=== PATIENT | male | born 1945 | race Caucasian/White ===

== ENCOUNTER 2017-08-20 14:52 | Inpatient (IN) | payer OTHER, MEDICARE ==
[2017-08-20] MEDS ORDERED: FUROSEMIDE INJ/PF 40 MG/4 ML SDV IV ONE (16:10)
--- NOTE | 2017-08-20 16:12 | RADIOLOGY REPORT (SQ) ---
EXAM DESCRIPTION: CHEST PA/LAT COMPLETED DATE/TIME: 08/20/2017 4:02 pm REASON FOR STUDY: sob COMPARISON: None. EXAM PARAMETERS: NUMBER OF VIEWS: two views TECHNIQUE: Digital Frontal and Lateral radiographic views of the chest acquired. RADIATION DOSE: NA LIMITATIONS: none FINDINGS: LUNGS AND PLEURA: Focal consolidations are seen involving the right lower lobe and lingula . No pneumothorax. No pleural effusion. MEDIASTINUM AND HILAR STRUCTURES: No masses or contour abnormalities. HEART AND VASCULAR STRUCTURES: Heart normal size. No evidence for failure. BONES: No acute findings. HARDWARE: Midline surgical changes. OTHER: No other significant finding. IMPRESSION: Multi lobar pneumonia. TECHNICAL DOCUMENTATION: JOB ID: [id number] [employer]- All Rights Reserved Reading location - IP/workstation name: [email or web address]
[2017-08-20] MEDS ORDERED: CEFTRIAXONE 1 GM/D5W RTU 1 GM/50 ML RTUPB IV ONE (16:49)
[2017-08-20] MEDS ORDERED: AZITHROMYCIN INJ 500 MG VIAL IV ONE (16:50)
--- NOTE | 2017-08-20 16:57 | ER Document Report ---
ED General - General Chief Complaint: Shortness Of Breath Stated Complaint: SHORTNESS OF BREATH Time Seen by Provider: 08/20/17 15:21 Information source: Patient, Relative TRAVEL OUTSIDE OF THE [place] IN LAST 30 DAYS: No - HPI Patient complains to provider of: sob Onset: Yesterday Onset/Duration: Gradual Quality of pain: No pain Associated symptoms: Nonproductive cough, Fever - 101 last PM-tympanic Exacerbated by: Denies Relieved by: Denies Similar symptoms previously: Yes - flu/PNA June Recently seen / treated by doctor: Yes Notes: Pt. Chronically on 4 L of O2. He recently was fitted for CPAP and is awaiting its arrival. Patient has extensive medical history of COPD, diabetes, hypertension, CABG in 2009. He had a temperature last night of 101 via his temporal skin area. No nausea vomiting or diarrhea. Patient presents here with shortness of breath. - Related Data Allergies/Adverse Reactions: dialiresp Allergy (Uncoded 08/20/17 14:54) Past Medical History - General Information source: Patient, Relative, Emergency Med Personnel - Social History Smoking Status: Never Smoker Chew tobacco use (# tins/day): No Frequency of alcohol use: None Drug Abuse: None Lives with: Family Family History: Hypertension Patient has suicidal ideation: No Patient has homicidal ideation: No - Past Medical History Cardiac Medical History: Reports: Hx Congestive Heart Failure, Hx Hypertension Pulmonary Medical History: Reports: Hx Pneumonia, Hx Intubation - December of this year EENT Medical History: Reports: None Neurological Medical History: Reports: None Endocrine Medical History: Reports: Hx Diabetes Mellitus Type 2 Renal/ Medical History: Reports: None. Denies: Hx Peritoneal Dialysis Malignancy Medical History: Reports None GI Medical History: Reports: None Psychiatric Medical History: Reports: None Past Surgical History: Reports: Hx Cardiac Surgery - CABG, Hx Orthopedic Surgery Review of Systems - Review of Systems Constitutional: Fever EENT: No symptoms reported Cardiovascular: No symptoms reported Respiratory: Cough, Short of breath Gastrointestinal: No symptoms reported Genitourinary: No symptoms reported Male Genitourinary: No symptoms reported Musculoskeletal: No symptoms reported Skin: No symptoms reported Hematologic/Lymphatic: No symptoms reported Neurological/Psychological: No symptoms reported Physical Exam - Vital signs Vitals: Temp Pulse Resp BP Pulse Ox 99.6 F 109 H 14 109/64 98 08/20/17 15:05 08/20/17 15:05 08/20/17 15:05 08/20/17 15:05 08/20/17 15:05 - Notes Notes: PHYSICAL EXAMINATION: GENERAL: Ill-appearing. Mild respiratory distress. HEAD: Atraumatic, normocephalic. EYES: Pupils equal round and reactive to light, extraocular movements intact, sclera anicteric, conjunctiva are normal. ENT: Nares patent, oropharynx clear without exudates. Moist mucous membranes. NECK: Normal range of motion, supple without lymphadenopathy LUNGS: Extensive bibasilar crackles. No wheezes or rhonchi. HEART: Regular rate and rhythm ABDOMEN: Soft, nontender, nondistended abdomen. No guarding, no rebound. No masses appreciated. Musculoskeletal: Normal range of motion, +1 pitting or edema. No cyanosis. NEUROLOGICAL: Cranial nerves grossly intact. Normal speech. Normal sensory, motor exams PSYCH: Normal mood, normal affect. SKIN: Warm, Dry, normal turgor, no rashes or lesions noted. Course - Re-evaluation Re-evalutation: 08/20/17 16:57 Patient's states patient is usually on 4 liters oxygen and his pulse ox is around 89-90. Chest X-Ray 08/20/17 15:26 IMPRESSION: Multi lobar pneumonia. 08/20/17 18:[address] Epstein. No answer. 08/20/17 18:22 08/20/17 19:29 08/20/17 19:55 - Vital Signs Vital signs: Temp Pulse Resp BP Pulse Ox 99.9 F 109 H 16 110/76 91 L 08/20/17 18:03 08/20/17 15:05 08/20/17 19:01 08/20/17 19:01 08/20/17 19:01 - Laboratory Result Diagrams: 08/20/17 15:20 08/20/17 15:20 Laboratory results interpreted by me: 08/20/17 08/20/17 15:20 15:20 WBC 20.1 H RBC 4.34 L Hgb 11.3 L Hct 36.2 L MCH 25.9 L MCHC 31.1 L RDW 19.4 H Seg Neuts % (Manual) 90 H Band Neutrophils % 1 L Lymphocytes % (Manual) 4 L Abs Neuts (Manual) 18.3 H Chloride 96 L Carbon Dioxide 37 H BUN 23 H AST 13 L ALT 15 L Creatine Kinase 44 L Total Protein 6.1 L - Diagnostic Test Radiology reviewed: Image reviewed, Reports reviewed - EKG Interpretation by Me EKG shows normal: Sinus rhythm Rate: Tachycardia - 104 When compared to previous EKG there are: Previous EKG unavailable Critical Care Note - Critical Care Note Total time excluding time spent on procedures (mins): 30 Comments: 30 minutes of critical care time spent in direct contact evaluating and reevaluating the patient, treating symptoms, reviewing labs and studies and speaking with family and consultants excluding any procedures Discharge - Discharge Clinical Impression: Pneumonia Disposition: ADMITTED INPATIENT Admitting Provider: Hospitalist - Dr. Gatica Unit Admitted: [facility]
[2017-08-20] MEDS ORDERED: CEFTRIAXONE INJ 1000 MG VIAL ONE (17:03)
[2017-08-20 17:16] LABS: HEMATOCRIT 36.2 % (37.9-51.0); HEMOGLOBIN 11.3 g/dL (13.5-17.0); MEAN CORPUSCULAR HEMOGLOBIN 25.9 pg (27.0-33.4); MEAN CORPUSCULAR HGB CONC 31.1 g/dL (32.0-36.0); MEAN CORPUSCULAR VOLUME 84 fl (80-97); PLATELET COUNT 185 10^3/uL (150-450); RED BLOOD COUNT 4.34 10^6/uL (4.35-5.55); RED CELL DISTRIBUTION WIDTH 19.4 % (11.5-14.0); WHITE BLOOD COUNT 20.1 10^3/uL (4.0-10.5)
[2017-08-20] MEDS ORDERED: IPRATROPIUM/ALBUTEROL 0.5-2.5 MG/3 ML AMPUL NEB ONE ×2 (17:21→19:30)
[2017-08-20 17:22] LABS: ALANINE AMINOTRANSFERASE 15 U/L (21-72); ALKALINE PHOSPHATASE 63 U/L (38-126); ANION GAP 10 (5-19); ASPARTATE AMINO TRANSFERASE 13 U/L (17-59); BILIRUBIN,DIRECT 0.2 mg/dL (0.0-0.4); BILIRUBIN,TOTAL 0.4 mg/dL (0.2-1.3); BLOOD UREA NITROGEN 23 mg/dL (7-20); CALCIUM 9.7 mg/dL (8.4-10.2); CARBON DIOXIDE 37 mmol/L (22-30); CHLORIDE 96 mmol/L (98-107); CREATINE KINASE 44 U/L (55-170); GLUCOSE 82 mg/dL (75-110); POTASSIUM 4.5 mmol/L (3.6-5.0); SODIUM 142.7 mmol/L (137-145); TOTAL PROTEIN 6.1 g/dL (6.3-8.2)
[2017-08-20 17:33] LABS: ABSOLUTE LYMPHOCYTES# (MANUAL) 0.8 10^3/uL (0.5-4.7); ABSOLUTE NEUTROPHILS# (MANUAL) 18.3 10^3/uL (1.7-8.2); BAND NEUTROPHILS % (MANUAL) 1 % (3-5); BASOPHILS % (MANUAL) 0 % (0-2); EOSINOPHILS % (MANUAL) 0 % (0-6); LYMPHOCYTES % (MANUAL) 4 % (13-45); MONOCYTES % (MANUAL) 5 % (3-13); SEGMENTED NEUTROPHILS % (MAN) 90 % (42-78); TOTAL CELLS COUNTED 100
[2017-08-20 17:34] LABS: ANISOCYTOSIS 1+; CREATINE KINASE MB 0.67 ng/mL (<4.55); HYPOCHROMASIA 1+; PLATELET COMMENT ADEQUATE; TROPONIN I 0.024 ng/mL
--- NOTE | 2017-08-20 18:02 | EKG REPORT ---
SEVERITY:- BORDERLINE ECG - SINUS TACHYCARDIA BORDERLINE T ABNORMALITIES, INFERIOR LEADS LVH : Confirmed by: Familia Washington MD 20-Aug-2017 18:01:14
[2017-08-20] MEDS ORDERED: (PENDING PHARMACY ID) (Oxycodone Hcl [Oxycontin] 15 MG) PO SCH (19:45)
[2017-08-20] MEDS ORDERED: VANCOMYCIN HCL 0 MG in DEXTROSE 5%-WATER 250 ML IV NR (20:30)
[2017-08-20 20:35] LABS: ARTERIAL BLOOD BASE EXCESS 13.1 mmol/L; ARTERIAL BLOOD H2CO3 1.88 mmol/L (1.05-1.35); ARTERIAL BLOOD HCO3 39.9 mmol/L (20-26); ARTERIAL BLOOD O2 SATURATION 92.4 % (94-98); ARTERIAL BLOOD PCO2 62.5 mmHg (35-45); ARTERIAL BLOOD PH 7.42 (7.35-7.45); ARTERIAL BLOOD PO2 64.6 mmHg (80-100); ARTERIAL BLOOD TOTAL CO2 41.8 mmol/L (23-27)
[2017-08-20 20:36] LABS: ARTERIAL BLOOD FIO2 75%
[2017-08-20] MEDS ORDERED: DEXTROSE 40% GEL 15 GM TUBE PO PRN ×2 (20:38)
[2017-08-20] MEDS ORDERED: DEXTROSE 50%-WATER 25 GM/50 ML DISP.SYRIN IV PRN ×2 (20:38)
[2017-08-20] MEDS ORDERED: GLUCAGON,HUMAN RECOMB 1 MG INJ IM PRN (20:38)
--- NOTE | 2017-08-20 20:38 | PDOC H&P ---
History of Present Illness Admission Date/PCP: CLIF LE DO Patient complains of: Cough, fever History of Present Illness: CELSO CHOUDHARY is a 72 year old male history of CAD, CHF, COPD on 4 L home O2, presented with 2-3 days feeling of malaise and then cough starting yesterday. He also had fever of 101.5 last night. His cough is productive of green sputum. He presented to the ED where evaluation significant for white blood cells 20,000 and chest x-ray showing multifocal pneumonia. Patient reports history of flu infection in late May and pneumonia afterwards, and was admitted at those times to [facility] on both occasions. He also had sleep study done 2 weeks ago outpatient and was told he has severe EPHRAIM. He still waiting for his CPAP to be set up. In the ED he had blood cultures done, and received a dose of Rocephin and Zithromax. He was also placed on oxygen nonrebreather bag with O2 sat 93%, but patient found to be somnolent. was at bedside, and she provided most of the history. Past Medical History Cardiac Medical History: Reports: Congestive Heart Failure, Coronary Artery Disease - With history of CABG 3V, Hypertension Pulmonary Medical History: Reports: Intubation - December of this year, Pneumonia EENT Medical History: Reports: None Neurological Medical History: Reports: None Endocrine Medical History: Reports: Diabetes Mellitus Type 2 Malignancy Medical History: Reports: None GI Medical History: Reports: None Psychiatric Medical History: Reports: None Past Surgical History Past Surgical History: Reports: Orthopedic Surgery Social History Information Source: Patient Lives with: Family Smoking Status: Never Smoker Family History Family History: Hypertension Parental Family History Reviewed: Yes Children Family History Reviewed: Unknown Sibling(s) Family History Reviewed.: Unknown Medication/Allergy Home Medications: Albuterol Sulfate [Albuterol Sulfate 2.5mg/3 mL] 1 vial IH Q4 PRN 08/20/17 B-Complex with Vitamin C [B-Complex with C] 1 each PO DAILY 08/20/17 Budesonide/Formoterol Fumarate [Symbicort 160-4.5 Mcg Inhaler] 10.2 gm IH DAILY 08/20/17 Cholecalciferol (Vitamin D3) [Vitamin D3 5000 unit Capsule] 5,000 unit PO DAILY 08/20/17 Donepezil HCl 10 mg PO DAILY 08/20/17 Furosemide [Lasix 40 mg Tablet] 40 mg PO BID 08/20/17 Iron Polysaccharide Complex [Ferrex 150] 150 mg PO DAILY 08/20/17 Isosorbide Mononitrate [Isosorbide Mononitrate ER] 60 mg PO DAILY 08/20/17 Levothyroxine Sodium 175 mcg PO DAILY 08/20/17 Lisinopril 20 mg PO DAILY 08/20/17 Magnesium Oxide [Mag-Ox 400 mg Tablet] 400 mg PO DAILY 08/20/17 Metformin HCl 1,000 mg PO BID 08/20/17 Metoprolol Tartrate 25 mg PO BID 08/20/17 Omeprazole 40 mg PO DAILY 08/20/17 Oxycodone HCl 15 mg PO Q6H PRN 08/20/17 Oxycodone HCl [Oxycontin] 30 mg PO Q12H 08/20/17 Potassium Chloride 20 meq PO BID 08/20/17 Pregabalin [Lyrica] 150 mg PO BID 08/20/17 Rosuvastatin Calcium [Crestor 20 mg Tablet] 20 mg PO QHS 08/20/17 Tamsulosin HCl 0.4 mg PO BID 08/20/17 Tiotropium [place] [Spiriva Handihaler 18 mcg/dose (30 Dose)] 1 cap IH DAILY 09/04 Ubidecarenone [Co Q-10] 200 mg PO DAILY 08/20/17 Allergies/Adverse Reactions: dialiresp Allergy (Uncoded 08/20/17 14:54) Review of Systems Review of Systems: CONSTITUTIONAL : Positive for fever/chills , has fatigue fatigue EENT: Denies eye, ear, throat, or mouth pain or symptoms. Denies nasal or sinus congestion or discharge. Denies throat, tongue, or mouth swelling or difficulty swallowing. CARDIOVASCULAR: Denies chest pain. No racing heart. Positive for lower extremities swelling, chronic. RESPIRATORY: Positive for cough and shortness of breath, with some difficulty breathing. GASTROINTESTINAL: Denies abdominal pain or distention. Denies nausea, vomiting , or diarrhea. No rectal bleeding. GENITOURINARY: Urinary symptoms -- no. MUSCULOSKELETAL: No acute weakness SKIN: Denies rash, lesions or sores. HEMATOLOGIC : Denies easy bruising or bleeding. LYMPHATIC: Denies swollen, enlarged glands. NEUROLOGICAL: New weakness, headaches, slured speach - No PSYCHIATRIC: Changes anxiety or stress, depression, suicidal ideation, or homicidal ideation -- No ALL OTHER SYSTEMS REVIEWED AND NEGATIVE. Physical Exam Vital Signs: Temp Pulse Resp BP Pulse Ox 99.9 F 109 H 16 110/76 91 L 08/20/17 18:03 08/20/17 15:05 08/20/17 19:01 08/20/17 19:01 08/20/17 19:01 Intake & Output 08/19/17 08/20/17 08/21/17 06:59 06:59 06:59 Weight 100 kg GENERAL: Well-developed, somnolent, no acute distress HEENT: Normocephalic/atraumatic, PERRL, EOMI NECK: Supple, no JVD CARDIOVASCULAR: Tachycardic, normal S1-S2 LUNGS: Few bilateral wheezing; crackles bilateral bases ABDOMEN: Soft, NT, NL bowel sounds EXTREMITIES: 1+ pedal edema, no clubbing, cyanosis NEUROLOGICAL: Alert, oriented x 3, no lateralizing weakness Results Laboratory Results: 08/20/17 15:20 08/20/17 15:20 08/20/17 08/20/17 08/20/17 15:20 15:20 17:15 WBC 20.1 H RBC 4.34 L Hgb 11.3 L Hct 36.2 L MCV 84 MCH 25.9 L MCHC 31.1 L RDW 19.4 H Plt Count 185 Seg Neutrophils % Not Reportable Lymphocytes % Not Reportable Monocytes % Not Reportable Eosinophils % Not Reportable Basophils % Not Reportable Absolute Neutrophils Not Reportable Absolute Lymphocytes Not Reportable Absolute Monocytes Not Reportable Absolute Eosinophils Not Reportable Absolute Basophils Not Reportable Sodium 142.7 Potassium 4.5 Chloride 96 L Carbon Dioxide 37 H Anion Gap 10 BUN 23 H Creatinine 1.14 Est GFR ( Amer) > 60 Est GFR (Non-Af Amer) > 60 Glucose 82 Lactic Acid 1.2 Calcium 9.7 Magnesium 2.1 Total Bilirubin 0.4 AST 13 L ALT 15 L Alkaline Phosphatase 63 Total Protein 6.1 L Albumin 4.0 08/20/17 08/20/17 15:20 15:20 Creatine Kinase 44 L CK-MB (CK-2) 0.67 Troponin I 0.024 NT-Pro-B Natriuret Pep 790 Impressions: Chest X-Ray 08/20/17 15:26 IMPRESSION: Multi lobar pneumonia. Assessment & Plan - Diagnosis (1) Pneumonia Qualifiers: Pneumonia type: due to unspecified organism Laterality: bilateral Is this a current diagnosis for this admission?: Yes Plan: Received Rocephin and azithromycin in the ED. Of note is that patient had recent hospitalization for flu and pneumonia within the past 2 months. Will treat with broad-spectrum antibiotics with Vanco, cefepime, and azithromycin for now. We will follow-up blood cultures. Check sputum culture. (2) Coronary artery disease Qualifiers: Coronary Disease-Associated Artery/Lesion type: [place] artery Is this a current diagnosis for this admission?: Yes (3) Congestive heart failure (CHF) Qualifiers: Heart failure chronicity: unspecified Plan: Lactic acid normal. Will hold off IV fluid given history of CHF. Can start gentle IV fluid if concern for dehydration (4) DM type 2 (diabetes mellitus, type 2) Plan: Accu-Chek with sliding scale insulin. (5) COPD exacerbation Is this a current diagnosis for this admission?: Yes Plan: We will treat with BiPAP, nebs, O2. Will also treat with Solu-Medrol 40 mg every 8 hours for now. (6) Obstructive sleep apnea Plan: Check ABG. We will treat with BiPAP with O2 - Inpatient Certification Based on my medical assessment, after consideration of the patient's comorbidities, presenting symptoms, or acuity I expect that the services needed warrant INPATIENT care.: Yes Medical Necessity: Significant Comorbidiites Make Outpatient Treatment Too Risky , Need Close Monitoring Due to Risk of Patient Decompensation, Need for IV Antibiotics
[2017-08-20] MEDS ORDERED: VANCOMYCIN HCL 2,000 MG in DEXTROSE 5%-WATER 500 ML IV ONE (20:45)
[2017-08-20] MEDS ORDERED: CEFEPIME 2 GM/D5W RTU 2 GM/50 ML RTUPB IV ONE (20:45)
[2017-08-20] MEDS ORDERED: VANCOMYCIN HCL INJ 1000 MG VIAL IV PRN (20:45)
[2017-08-20] MEDS: METHYLPREDNISOLONE INJ 40 MG/1 ML SDV IV SCH (21:54)
[2017-08-20] MEDS: METOPROLOL TARTRATE 25 MG TABLET PO SCH (21:57)
[2017-08-20] MEDS: TAMSULOSIN HCL 0.4 MG CAP.SR.24H PO SCH (21:59)
[2017-08-20] MEDS: OXYCODONE HCL IR 5 MG TABLET PO PRN (22:57)
[2017-08-20] MEDS: ATORVASTATIN CALCIUM 40 MG TABLET PO SCH (22:57)
[2017-08-21] MEDS ORDERED: ACETAMINOPHEN 325 MG TABLET PO PRN ×2 (03:33→09:33)
[2017-08-21] MEDS ORDERED: ACETAMINOPHEN 325 MG TABLET ONE (03:37)
[2017-08-21] MEDS: OXYCODONE HCL IR 5 MG TABLET PO PRN (04:55)
[2017-08-21] MEDS: METHYLPREDNISOLONE INJ 40 MG/1 ML SDV IV SCH ×3 (04:56→22:46)
[2017-08-21 06:29] LABS: ABSOLUTE LYMPHOCYTES (AUTO) 0.8 10^3/uL (0.5-4.7); ABSOLUTE MONOCYTES (AUTO) 0.6 10^3/uL (0.1-1.4); BASOPHILS % (AUTO) 0.2 % (0-2); HEMATOCRIT 35.4 % (37.9-51.0); HEMOGLOBIN 11.1 g/dL (13.5-17.0); LYMPHOCYTES % (AUTO) 5.1 % (13-45); MEAN CORPUSCULAR HEMOGLOBIN 25.6 pg (27.0-33.4); MEAN CORPUSCULAR HGB CONC 31.3 g/dL (32.0-36.0); MEAN CORPUSCULAR VOLUME 82 fl (80-97); MONOCYTES % (AUTO) 4.1 % (3-13); PLATELET COUNT 164 10^3/uL (150-450); RED BLOOD COUNT 4.31 10^6/uL (4.35-5.55); RED CELL DISTRIBUTION WIDTH 19.2 % (11.5-14.0); SEGMENTED NEUTROPHILS % (AUTO) 90.6 % (42-78); TOTAL CELLS COUNTED % (AUTO) 100 %; WHITE BLOOD COUNT 15.5 10^3/uL (4.0-10.5)
[2017-08-21 07:06] LABS: ALANINE AMINOTRANSFERASE 20 U/L (21-72); ALBUMIN 3.7 g/dL (3.5-5.0); ALKALINE PHOSPHATASE 57 U/L (38-126); ANION GAP 11 (5-19); ASPARTATE AMINO TRANSFERASE 12 U/L (17-59); BILIRUBIN,DIRECT 0.2 mg/dL (0.0-0.4); BILIRUBIN,TOTAL 0.7 mg/dL (0.2-1.3); BLOOD UREA NITROGEN 21 mg/dL (7-20); CALCIUM 9.4 mg/dL (8.4-10.2); CARBON DIOXIDE 34 mmol/L (22-30); CHLORIDE 95 mmol/L (98-107); GLUCOSE 159 mg/dL (75-110); POTASSIUM 4.2 mmol/L (3.6-5.0); SODIUM 139.9 mmol/L (137-145); TOTAL PROTEIN 5.7 g/dL (6.3-8.2)
[2017-08-21] MEDS: INSULIN REG, HUMAN 100 UNIT/ML 3 ML VIAL (PYX) SUBCUT PRN ×2 (08:21→12:27)
[2017-08-21] MEDS ORDERED: (PENDING PHARMACY ID) (Ubidecarenone [Co Q-10] 200 MG) PO SCH (10:00)
[2017-08-21] MEDS ORDERED: LANSOPRAZOLE 30 MG TAB.RAP.DR PO SCH (10:00)
[2017-08-21] MEDS ORDERED: ISOSORBIDE MONONITRATE 30 MG TAB.ER.24H PO SCH (10:00)
[2017-08-21] MEDS ORDERED: LEVOTHYROXINE SODIUM 0.075 MG TABLET PO SCH (10:00)
[2017-08-21] MEDS ORDERED: B COMPLEX WITH VITAMIN C PO SCH (10:00)
[2017-08-21] MEDS ORDERED: CEFEPIME 2 GM/D5W RTU 2 GM/50 ML RTUPB IV SCH (10:00)
[2017-08-21] MEDS ORDERED: (PENDING PHARMACY ID) (Levothyroxine Sodium [Levothyroxine Sodium] 175 MCG) PO SCH (10:00)
[2017-08-21] MEDS ORDERED: CEFEPIME HCL 2 GM in DEXTROSE 5%-WATER 100 ML IV SCH (10:00)
[2017-08-21] MEDS ORDERED: PREGABALIN 75 MG CAPSULE PO SCH (10:00)
[2017-08-21] MEDS ORDERED: LEVOTHYROXINE SODIUM 0.1 MG TABLET PO SCH (10:00)
[2017-08-21] MEDS: BUDESONIDE/FORMOTEROL 160-4.5 MCG 60 PUFF/6 GM MDI IH SCH (10:06)
[2017-08-21] MEDS: TIOTROPIUM BROMIDE DPI 5 CAP/KIT (18 MCG/CAP) IH SCH (10:06)
[2017-08-21] MEDS: DONEPEZIL HCL 5 MG TABLET PO SCH (10:07)
[2017-08-21] MEDS: ENOXAPARIN SODIUM INJ 40 MG/0.4 ML DISP.SYRIN SUBCUT SCH (10:07)
[2017-08-21] MEDS: AZITHROMYCIN 500 MG in DEXTROSE 5%-WATER 250 ML IV SCH (10:07)
[2017-08-21] MEDS: CHOLECALCIFEROL (D3) 1,000 UNIT TABLET PO SCH (10:08)
[2017-08-21] MEDS: ISOSORBIDE MONONITRATE 60 MG TAB.ER.24H PO SCH (10:09)
[2017-08-21] MEDS: MAGNESIUM OXIDE 400 MG TABLET PO SCH (10:09)
[2017-08-21] MEDS: LISINOPRIL 10 MG TABLET PO SCH (10:10)
[2017-08-21] MEDS: METOPROLOL TARTRATE 25 MG TABLET PO SCH ×2 (10:11→22:47)
[2017-08-21] MEDS: POTASSIUM CHLORIDE 10 MEQ TABLET.SA PO SCH ×2 (10:11→18:37)
[2017-08-21] MEDS: METFORMIN HCL 500 MG TABLET PO SCH ×2 (10:12→18:37)
[2017-08-21] MEDS: PREGABALIN 75 MG CAPSULE PO SCH ×2 (10:12→22:46)
[2017-08-21] MEDS: FUROSEMIDE 40 MG TABLET PO SCH ×2 (10:13→18:38)
[2017-08-21] MEDS: IRON POLYSACCHARIDES COMPLEX 150 MG CAPSULE PO SCH (10:13)
[2017-08-21] MEDS: TAMSULOSIN HCL 0.4 MG CAP.SR.24H PO SCH ×2 (10:13→22:47)
[2017-08-21] MEDS: CEFEPIME HCL 2 GM in DEXTROSE 5%-WATER 100 ML IV SCH ×2 (10:23→22:46)
--- NOTE | 2017-08-21 14:54 | PDOC PROGRESS REPORT ---
Subjective Progress Note for:: 08/21/17 Subjective:: Patient is resting comfortably on BiPAP support when evaluated he has no chest pain; minimal shortness of breath No fever no chills Reason For Visit: MULTI-LOBAR PNA Physical Exam Vital Signs: Temp Pulse Resp BP Pulse Ox 98.7 F 80 16 128/79 H 87 L 08/21/17 10:05 08/21/17 14:37 08/21/17 08:00 08/21/17 10:05 08/21/17 10:05 Intake & Output 08/20/17 08/21/17 08/22/17 00:59 00:59 00:59 Intake Total 5 Balance 5 Weight 99.3 kg Results Laboratory Results: 08/21/17 06:07 08/21/17 06:07 08/20/17 08/21/17 08/21/17 20:17 06:07 06:07 WBC 15.5 H RBC 4.31 L Hgb 11.1 L Hct 35.4 L MCV 82 MCH 25.6 L MCHC 31.3 L RDW 19.2 H Plt Count 164 Seg Neutrophils % 90.6 H Lymphocytes % 5.1 L Monocytes % 4.1 Eosinophils % 0.0 Basophils % 0.2 Absolute Neutrophils 14.0 H Absolute Lymphocytes 0.8 Absolute Monocytes 0.6 Absolute Eosinophils 0.0 Absolute Basophils 0.0 Carbonic Acid 1.88 H HCO3/H2CO3 Ratio 21:1 ABG pH 7.42 ABG pCO2 62.5 H ABG pO2 64.6 L ABG HCO3 39.9 H ABG O2 Saturation 92.4 L ABG Base Excess 13.1 FiO2 75% Sodium 139.9 Potassium 4.2 Chloride 95 L Carbon Dioxide 34 H Anion Gap 11 BUN 21 H Creatinine 0.95 Est GFR ( Amer) > 60 Est GFR (Non-Af Amer) > 60 Glucose 159 H Calcium 9.4 Magnesium 2.1 Total Bilirubin 0.7 AST 12 L ALT 20 L Alkaline Phosphatase 57 Total Protein 5.7 L Albumin 3.7 Impressions: Chest X-Ray 08/20/17 15:26 IMPRESSION: Multi lobar pneumonia. Assessment & Plan - Time Time Spent with patient: (1) Pneumonia Qualifiers: Pneumonia type: due to unspecified organism Laterality: bilateral Is this a current diagnosis for this admission?: Yes Plan: Received Rocephin and azithromycin in the ED. Of note is that patient had recent hospitalization for flu and pneumonia within the past 2 months. Will treat with broad-spectrum antibiotics with Vanco, cefepime, and azithromycin for now. We will follow-up blood cultures. Check sputum culture. Blood cultures are pending Awaiting sputum cultures (2) Coronary artery disease Qualifiers: Coronary Disease-Associated Artery/Lesion type: [place] artery Is this a current diagnosis for this admission?: Yes (3) Congestive heart failure (CHF) Qualifiers: Heart failure chronicity: unspecified Plan: Lactic acid normal. Will hold off IV fluid given history of CHF. Can start gentle IV fluid if concern for dehydration (4) DM type 2 (diabetes mellitus, type 2) Plan: Accu-Chek with sliding scale insulin. (5) COPD exacerbation Is this a current diagnosis for this admission?: Yes Plan: We will treat with BiPAP, nebs, O2. Will also treat with Solu-Medrol 40 mg every 8 hours for now. (6) Obstructive sleep apnea Plan: Check ABG. We will treat with BiPAP with O2 Patient is stable Continue present management Time Spent with patient: 25-34 minutes
[2017-08-21] MEDS: VANCOMYCIN HCL 1,250 MG in DEXTROSE 5%-WATER 250 ML IV SCH (18:38)
[2017-08-21] MEDS: ATORVASTATIN CALCIUM 40 MG TABLET PO SCH (22:47)
[2017-08-22] MEDS: METHYLPREDNISOLONE INJ 40 MG/1 ML SDV IV SCH ×3 (05:44→21:04)
[2017-08-22] MEDS: VANCOMYCIN HCL 1,250 MG in DEXTROSE 5%-WATER 250 ML IV SCH ×2 (05:44→18:00)
[2017-08-22] MEDS ORDERED: LEVOTHYROXINE SODIUM 0.1 MG TABLET PO ONE (08:00)
[2017-08-22] MEDS ORDERED: LANSOPRAZOLE 30 MG TAB.RAP.DR PO ONE (08:00)
[2017-08-22] MEDS ORDERED: LEVOTHYROXINE SODIUM 0.075 MG TABLET PO ONE (08:00)
[2017-08-22] MEDS: ALBUTEROL SULFATE 0.083% NEB 2.5 MG/3 ML AMPUL NEB PRN ×2 (08:34→12:10)
[2017-08-22] MEDS: TIOTROPIUM BROMIDE DPI 5 CAP/KIT (18 MCG/CAP) IH SCH (09:19)
[2017-08-22] MEDS: MAGNESIUM OXIDE 400 MG TABLET PO SCH (09:19)
[2017-08-22] MEDS: POTASSIUM CHLORIDE 10 MEQ TABLET.SA PO SCH ×2 (09:20→17:59)
[2017-08-22] MEDS: DONEPEZIL HCL 5 MG TABLET PO SCH (09:20)
[2017-08-22] MEDS: METOPROLOL TARTRATE 25 MG TABLET PO SCH ×2 (09:20→21:04)
[2017-08-22] MEDS: OXYCODONE HCL IR 5 MG TABLET PO PRN (09:21)
[2017-08-22] MEDS: ISOSORBIDE MONONITRATE 60 MG TAB.ER.24H PO SCH (09:22)
[2017-08-22] MEDS: FUROSEMIDE 40 MG TABLET PO SCH ×2 (09:22→17:59)
[2017-08-22] MEDS: MULTIVIT-STRESS FORMULA/ZINC TABLET PO SCH (09:23)
[2017-08-22] MEDS: IRON POLYSACCHARIDES COMPLEX 150 MG CAPSULE PO SCH (09:23)
[2017-08-22] MEDS: LISINOPRIL 10 MG TABLET PO SCH (09:23)
[2017-08-22] MEDS: TAMSULOSIN HCL 0.4 MG CAP.SR.24H PO SCH ×2 (09:24→21:04)
[2017-08-22] MEDS: PREGABALIN 75 MG CAPSULE PO SCH ×2 (09:24→21:03)
[2017-08-22] MEDS: INSULIN REG, HUMAN 100 UNIT/ML 3 ML VIAL (PYX) SUBCUT PRN ×3 (09:24→18:01)
[2017-08-22] MEDS: ENOXAPARIN SODIUM INJ 40 MG/0.4 ML DISP.SYRIN SUBCUT SCH (09:24)
[2017-08-22] MEDS: CHOLECALCIFEROL (D3) 1,000 UNIT TABLET PO SCH (09:25)
[2017-08-22] MEDS: CEFEPIME HCL 2 GM in DEXTROSE 5%-WATER 100 ML IV SCH ×2 (09:25→21:04)
[2017-08-22] MEDS: METFORMIN HCL 500 MG TABLET PO SCH ×2 (09:25→17:59)
[2017-08-22] MEDS: AZITHROMYCIN 500 MG in DEXTROSE 5%-WATER 250 ML IV SCH (09:26)
[2017-08-22] MEDS: BUDESONIDE/FORMOTEROL 160-4.5 MCG 60 PUFF/6 GM MDI IH SCH (09:27)
--- NOTE | 2017-08-22 16:12 | PDOC PROGRESS REPORT ---
Subjective Progress Note for:: 08/22/17 Subjective:: 72-year-old man admitted on 08/20/2017 with bilateral pneumonia. Seen and examined this morning, he was found sitting in chair and eating lunch. He reports feeling a bit better since admitted. Continue to cough productive of yellowish sputum. No reports of fever nor chills. present during rounds. Reason For Visit: MULTI-LOBAR PNA Physical Exam Vital Signs: Temp Pulse Resp BP Pulse Ox 99.4 F 80 18 103/55 L 92 08/22/17 15:02 08/22/17 15:02 08/22/17 15:02 08/22/17 15:02 08/22/17 15:02 Intake & Output 08/21/17 08/22/17 08/23/17 06:59 06:59 06:59 Intake Total 5 2100 600 Output Total 440 Balance 5 1660 600 Weight 99.3 kg 98.1 kg General appearance: PRESENT: no acute distress Head exam: PRESENT: atraumatic, normocephalic Mouth exam: PRESENT: moist, neck supple Respiratory exam: PRESENT: rhonchi, unlabored. ABSENT: accessory muscle use Cardiovascular exam: PRESENT: RRR GI/Abdominal exam: PRESENT: normal bowel sounds, soft. ABSENT: tenderness Rectal exam: PRESENT: deferred Extremities exam: PRESENT: full ROM Musculoskeletal exam: PRESENT: full ROM Neurological exam: PRESENT: alert, awake, oriented to time, oriented to situation Psychiatric exam: PRESENT: appropriate affect Results Laboratory Results: 08/21/17 06:07 08/21/17 06:07 Impressions: Chest X-Ray 08/20/17 15:26 IMPRESSION: Multi lobar pneumonia. Assessment & Plan - Diagnosis (1) Pneumonia Qualifiers: Pneumonia type: due to unspecified organism Laterality: bilateral Is this a current diagnosis for this admission?: Yes Plan: Gram-negative versus gram-positive pneumonia Currently on vancomycin, cefepime and azithromycin Blood culture negative to date Obtain sputum cultures if able Leukocytosis trending down and CBC in a.m. (2) Congestive heart failure (CHF) Qualifiers: Heart failure chronicity: unspecified Is this a current diagnosis for this admission?: No Plan: Does appear to be euvolemic Continue current management (3) Coronary artery disease Qualifiers: Coronary Disease-Associated Artery/Lesion type: [place] artery Is this a current diagnosis for this admission?: No Plan: Continue current management including Imdur and lisinopril (4) DM type 2 (diabetes mellitus, type 2) Qualifiers: Diabetes mellitus complication status: without complication Is this a current diagnosis for this admission?: Yes Plan: Monitor blood sugar Continue p.o. medication and on insulin regimen (5) Obstructive sleep apnea Plan: Nightly CPAP (6) DVT prophylaxis Plan: On Lovenox
[2017-08-22] MEDS: ATORVASTATIN CALCIUM 40 MG TABLET PO SCH (21:04)
[2017-08-22 21:36] LABS: ABSOLUTE LYMPHOCYTES (AUTO) 0.9 10^3/uL (0.5-4.7); ABSOLUTE MONOCYTES (AUTO) 0.7 10^3/uL (0.1-1.4); ABSOLUTE NEUT (AUTO) 9.7 10^3/uL (1.7-8.2); HEMATOCRIT 33.8 % (37.9-51.0); HEMOGLOBIN 10.6 g/dL (13.5-17.0); LYMPHOCYTES % (AUTO) 7.9 % (13-45); MEAN CORPUSCULAR HEMOGLOBIN 25.6 pg (27.0-33.4); MEAN CORPUSCULAR HGB CONC 31.2 g/dL (32.0-36.0); MEAN CORPUSCULAR VOLUME 82 fl (80-97); MONOCYTES % (AUTO) 6.2 % (3-13); PLATELET COUNT 206 10^3/uL (150-450); RED BLOOD COUNT 4.12 10^6/uL (4.35-5.55); SEGMENTED NEUTROPHILS % (AUTO) 85.9 % (42-78); TOTAL CELLS COUNTED % (AUTO) 100 %; WHITE BLOOD COUNT 11.3 10^3/uL (4.0-10.5)
[2017-08-23 06:21] LABS: ANION GAP 11 (5-19); BLOOD UREA NITROGEN 37 mg/dL (7-20); CALCIUM 9.8 mg/dL (8.4-10.2); CARBON DIOXIDE 30 mmol/L (22-30); CHLORIDE 102 mmol/L (98-107); GLUCOSE 136 mg/dL (75-110); POTASSIUM 4.9 mmol/L (3.6-5.0); SODIUM 143.4 mmol/L (137-145)
[2017-08-23 06:23] LABS: VANCOMYCIN,TROUGH 16.5 ug/mL (5.0-20.0)
[2017-08-23] MEDS: LEVOTHYROXINE SODIUM 0.075 MG TABLET PO SCH (06:23)
[2017-08-23] MEDS: LEVOTHYROXINE SODIUM 0.1 MG TABLET PO SCH (06:23)
[2017-08-23] MEDS: LANSOPRAZOLE 30 MG TAB.RAP.DR PO SCH (06:23)
[2017-08-23] MEDS: VANCOMYCIN HCL 1,250 MG in DEXTROSE 5%-WATER 250 ML IV SCH ×2 (06:23→17:24)
[2017-08-23] MEDS: METHYLPREDNISOLONE INJ 40 MG/1 ML SDV IV SCH ×3 (06:23→22:16)
[2017-08-23] MEDS: INSULIN REG, HUMAN 100 UNIT/ML 3 ML VIAL (PYX) SUBCUT PRN ×3 (08:27→22:16)
[2017-08-23] MEDS: BUDESONIDE/FORMOTEROL 160-4.5 MCG 60 PUFF/6 GM MDI IH SCH (09:40)
[2017-08-23] MEDS: TIOTROPIUM BROMIDE DPI 5 CAP/KIT (18 MCG/CAP) IH SCH (09:41)
[2017-08-23] MEDS: POTASSIUM CHLORIDE 10 MEQ TABLET.SA PO SCH ×2 (09:42→17:26)
[2017-08-23] MEDS: CHOLECALCIFEROL (D3) 1,000 UNIT TABLET PO SCH (09:43)
[2017-08-23] MEDS: PREGABALIN 75 MG CAPSULE PO SCH ×2 (09:44→22:17)
[2017-08-23] MEDS: DONEPEZIL HCL 5 MG TABLET PO SCH (09:44)
[2017-08-23] MEDS: METOPROLOL TARTRATE 25 MG TABLET PO SCH ×2 (09:45→22:16)
[2017-08-23] MEDS: ISOSORBIDE MONONITRATE 60 MG TAB.ER.24H PO SCH (09:45)
[2017-08-23] MEDS: TAMSULOSIN HCL 0.4 MG CAP.SR.24H PO SCH ×2 (09:45→22:16)
[2017-08-23] MEDS: IRON POLYSACCHARIDES COMPLEX 150 MG CAPSULE PO SCH (09:46)
[2017-08-23] MEDS: LISINOPRIL 10 MG TABLET PO SCH (09:46)
[2017-08-23] MEDS: MAGNESIUM OXIDE 400 MG TABLET PO SCH (09:46)
[2017-08-23] MEDS: METFORMIN HCL 500 MG TABLET PO SCH ×2 (09:47→17:22)
[2017-08-23] MEDS: FUROSEMIDE 40 MG TABLET PO SCH ×2 (09:47→17:24)
[2017-08-23] MEDS: MULTIVIT-STRESS FORMULA/ZINC TABLET PO SCH (09:47)
[2017-08-23] MEDS: ENOXAPARIN SODIUM INJ 40 MG/0.4 ML DISP.SYRIN SUBCUT SCH (09:48)
[2017-08-23] MEDS: CEFEPIME HCL 2 GM in DEXTROSE 5%-WATER 100 ML IV SCH ×2 (09:48→22:17)
[2017-08-23] MEDS: AZITHROMYCIN 500 MG in DEXTROSE 5%-WATER 250 ML IV SCH (11:03)
--- NOTE | 2017-08-23 17:15 | PDOC PROGRESS REPORT ---
Subjective Progress Note for:: 08/23/17 Subjective:: 72-year-old man admitted on 08/20/2017 with bilateral pneumonia. Seen and examined this pm and eating lunch. He reports feeling drained today. Reason For Visit: MULTI-LOBAR PNA Physical Exam Vital Signs: Temp Pulse Resp BP Pulse Ox 98.3 F 69 18 128/77 H 93 08/23/17 15:21 08/23/17 15:21 08/23/17 15:21 08/23/17 15:21 08/23/17 15:21 Intake & Output 08/22/17 08/23/17 08/24/17 06:59 06:59 06:59 Intake Total 2100 3190 400 Output Total 440 Balance 1660 3190 400 Weight 98.1 kg 101.1 kg General appearance: PRESENT: no acute distress, other - elderly man Head exam: PRESENT: atraumatic, normocephalic Eye exam: PRESENT: EOMI Mouth exam: PRESENT: moist Neck exam: PRESENT: full ROM Respiratory exam: PRESENT: clear to auscultation nellie, unlabored. ABSENT: accessory muscle use Cardiovascular exam: PRESENT: RRR GI/Abdominal exam: PRESENT: normal bowel sounds, soft Rectal exam: PRESENT: deferred Extremities exam: PRESENT: full ROM Neurological exam: PRESENT: alert, awake, oriented to person, oriented to situation Psychiatric exam: PRESENT: appropriate affect Skin exam: PRESENT: dry, warm Results Laboratory Results: 08/22/17 21:14 08/23/17 05:48 08/22/17 08/23/17 21:14 05:48 WBC 11.3 H RBC 4.12 L Hgb 10.6 L Hct 33.8 L MCV 82 MCH 25.6 L MCHC 31.2 L RDW 19.0 H Plt Count 206 Seg Neutrophils % 85.9 H Lymphocytes % 7.9 L Monocytes % 6.2 Eosinophils % 0.0 Basophils % 0.0 Absolute Neutrophils 9.7 H Absolute Lymphocytes 0.9 Absolute Monocytes 0.7 Absolute Eosinophils 0.0 Absolute Basophils 0.0 Sodium 143.4 Potassium 4.9 Chloride 102 Carbon Dioxide 30 Anion Gap 11 BUN 37 H Creatinine 1.06 Est GFR ( Amer) > 60 Est GFR (Non-Af Amer) > 60 Glucose 136 H Calcium 9.8 Impressions: Chest X-Ray 08/20/17 15:26 IMPRESSION: Multi lobar pneumonia. Assessment & Plan - Diagnosis (1) Pneumonia Qualifiers: Pneumonia type: due to unspecified organism Laterality: bilateral Is this a current diagnosis for this admission?: Yes Plan: Gram-negative versus gram-positive pneumonia Currently on vancomycin, cefepime and azithromycin Blood culture negative to date Obtain sputum ordered and not collected Leukocytosis continues to trend down (2) Congestive heart failure (CHF) Qualifiers: Heart failure chronicity: unspecified Is this a current diagnosis for this admission?: No Plan: Continue current management On PO Lasix (3) Coronary artery disease Qualifiers: Coronary Disease-Associated Artery/Lesion type: [place] artery Is this a current diagnosis for this admission?: No Plan: Continue current management including Imdur and lisinopril (4) DM type 2 (diabetes mellitus, type 2) Qualifiers: Diabetes mellitus complication status: without complication Is this a current diagnosis for this admission?: Yes Plan: Monitor blood sugar Continue p.o. medication and on insulin regimen (5) Obstructive sleep apnea Plan: Nightly CPAP (6) DVT prophylaxis Plan: On Lovenox - Time Time Spent with patient: 15-24 minutes Within: within 48 hours - Inpatient Certification Medical Necessity: Need for IV Antibiotics
[2017-08-23] MEDS: ALBUTEROL SULFATE 0.083% NEB 2.5 MG/3 ML AMPUL NEB PRN (20:03)
[2017-08-23] MEDS: OXYCODONE HCL IR 5 MG TABLET PO PRN (22:16)
[2017-08-23] MEDS: ATORVASTATIN CALCIUM 40 MG TABLET PO SCH (22:16)
[2017-08-24] MEDS: VANCOMYCIN HCL 1,250 MG in DEXTROSE 5%-WATER 250 ML IV SCH ×2 (06:20→18:31)
[2017-08-24] MEDS: METHYLPREDNISOLONE INJ 40 MG/1 ML SDV IV SCH (06:21)
[2017-08-24] MEDS: LEVOTHYROXINE SODIUM 0.1 MG TABLET PO SCH (06:21)
[2017-08-24] MEDS: LANSOPRAZOLE 30 MG TAB.RAP.DR PO SCH (06:21)
[2017-08-24] MEDS: LEVOTHYROXINE SODIUM 0.075 MG TABLET PO SCH (06:21)
[2017-08-24] MEDS: ALBUTEROL SULFATE 0.083% NEB 2.5 MG/3 ML AMPUL NEB PRN ×4 (07:55→19:42)
[2017-08-24] MEDS: TIOTROPIUM BROMIDE DPI 5 CAP/KIT (18 MCG/CAP) IH SCH (09:45)
[2017-08-24] MEDS: BUDESONIDE/FORMOTEROL 160-4.5 MCG 60 PUFF/6 GM MDI IH SCH (09:45)
[2017-08-24] MEDS: AZITHROMYCIN 250 MG TABLET PO SCH (09:46)
[2017-08-24] MEDS: CEFEPIME HCL 2 GM in DEXTROSE 5%-WATER 100 ML IV SCH (09:46)
[2017-08-24] MEDS: ENOXAPARIN SODIUM INJ 40 MG/0.4 ML DISP.SYRIN SUBCUT SCH (09:46)
[2017-08-24] MEDS: LISINOPRIL 10 MG TABLET PO SCH (09:47)
[2017-08-24] MEDS: POTASSIUM CHLORIDE 10 MEQ TABLET.SA PO SCH (09:48)
[2017-08-24] MEDS: CHOLECALCIFEROL (D3) 1,000 UNIT TABLET PO SCH (09:48)
[2017-08-24] MEDS: FUROSEMIDE 40 MG TABLET PO SCH ×2 (09:49→18:31)
[2017-08-24] MEDS: MULTIVIT-STRESS FORMULA/ZINC TABLET PO SCH (09:49)
[2017-08-24] MEDS: ISOSORBIDE MONONITRATE 60 MG TAB.ER.24H PO SCH (09:50)
[2017-08-24] MEDS: TAMSULOSIN HCL 0.4 MG CAP.SR.24H PO SCH ×2 (09:50→21:27)
[2017-08-24] MEDS: IRON POLYSACCHARIDES COMPLEX 150 MG CAPSULE PO SCH (09:50)
[2017-08-24] MEDS: MAGNESIUM OXIDE 400 MG TABLET PO SCH (09:51)
[2017-08-24] MEDS: METOPROLOL TARTRATE 25 MG TABLET PO SCH ×2 (09:51→21:26)
[2017-08-24] MEDS: METFORMIN HCL 500 MG TABLET PO SCH ×2 (09:51→18:31)
[2017-08-24] MEDS: PREGABALIN 75 MG CAPSULE PO SCH ×2 (09:52→21:27)
[2017-08-24] MEDS: DONEPEZIL HCL 5 MG TABLET PO SCH (09:52)
[2017-08-24] MEDS ORDERED: METHYLPREDNISOLONE INJ 40 MG/1 ML SDV IV SCH (10:00)
[2017-08-24] MEDS: INSULIN REG, HUMAN 100 UNIT/ML 3 ML VIAL (PYX) SUBCUT PRN ×2 (13:56→23:24)
--- NOTE | 2017-08-24 17:28 | PDOC PROGRESS REPORT ---
Subjective Progress Note for:: 08/24/17 Subjective:: 72-year-old man admitted on 08/20/2017 with bilateral pneumonia. Seen and examined this pm and had just finished lunch. He reports feeling much better than the day prior. Reason For Visit: MULTI-LOBAR PNA Physical Exam Vital Signs: Temp Pulse Resp BP Pulse Ox 98.5 F 62 18 124/74 89 L 08/24/17 15:28 08/24/17 15:28 08/24/17 15:28 08/24/17 15:28 08/24/17 15:28 Intake & Output 08/23/17 08/24/17 08/25/17 06:59 06:59 06:59 Intake Total 3190 1583 1017 Output Total 500 950 Balance 3190 1083 67 Weight 101.1 kg 100.7 kg General appearance: PRESENT: no acute distress, cooperative Head exam: PRESENT: atraumatic, normocephalic Eye exam: PRESENT: EOMI Mouth exam: PRESENT: moist Neck exam: PRESENT: full ROM Respiratory exam: PRESENT: decreased breath sounds, unlabored. ABSENT: accessory muscle use GI/Abdominal exam: PRESENT: normal bowel sounds, soft Rectal exam: PRESENT: deferred Extremities exam: PRESENT: full ROM Musculoskeletal exam: PRESENT: full ROM Neurological exam: PRESENT: alert, oriented to person, oriented to time Results Laboratory Results: 08/22/17 21:14 08/23/17 05:48 Impressions: Chest X-Ray 08/20/17 15:26 IMPRESSION: Multi lobar pneumonia. Assessment & Plan - Diagnosis (1) Pneumonia Qualifiers: Pneumonia type: due to unspecified organism Laterality: bilateral Is this a current diagnosis for this admission?: Yes Plan: Gram-negative versus gram-positive pneumonia Currently on vancomycin, cefepime and azithromycin Blood culture negative to date Weaning down steroids Leukocytosis down and stable (2) Congestive heart failure (CHF) Qualifiers: Heart failure chronicity: unspecified Is this a current diagnosis for this admission?: No Plan: Continue current management On PO Lasix (3) Coronary artery disease Qualifiers: Coronary Disease-Associated Artery/Lesion type: [place] artery Is this a current diagnosis for this admission?: No Plan: Continue current management including Imdur and lisinopril (4) DM type 2 (diabetes mellitus, type 2) Qualifiers: Diabetes mellitus complication status: without complication Is this a current diagnosis for this admission?: Yes Plan: Monitor blood sugar Continue p.o. medication and on insulin regimen (5) Obstructive sleep apnea Plan: Nightly CPAP (6) DVT prophylaxis Plan: On Lovenox - Time Time Spent with patient: 15-24 minutes - Plan for discharge Anticipated discharge: Home Within: within 24 hours - Inpatient Certification Medical Necessity: Need for IV Antibiotics
[2017-08-24] MEDS: OXYCODONE HCL IR 5 MG TABLET PO PRN (20:30)
[2017-08-24] MEDS: ATORVASTATIN CALCIUM 40 MG TABLET PO SCH (21:27)
[2017-08-24] MEDS: CEFEPIME HCL 2 GM in NORMAL SALINE 100 ML IV SCH (21:30)
[2017-08-25] MEDS: LEVOTHYROXINE SODIUM 0.075 MG TABLET PO SCH (05:20)
[2017-08-25] MEDS: LEVOTHYROXINE SODIUM 0.1 MG TABLET PO SCH (05:20)
[2017-08-25] MEDS: LANSOPRAZOLE 30 MG TAB.RAP.DR PO SCH (05:20)
[2017-08-25] MEDS: VANCOMYCIN HCL 1,250 MG in DEXTROSE 5%-WATER 250 ML IV SCH (07:38)
[2017-08-25] MEDS: ALBUTEROL SULFATE 0.083% NEB 2.5 MG/3 ML AMPUL NEB PRN ×2 (08:19→11:31)
[2017-08-25] MEDS: ISOSORBIDE MONONITRATE 60 MG TAB.ER.24H PO SCH (09:50)
[2017-08-25] MEDS: AZITHROMYCIN 250 MG TABLET PO SCH (09:50)
[2017-08-25] MEDS: MULTIVIT-STRESS FORMULA/ZINC TABLET PO SCH (09:50)
[2017-08-25] MEDS: MAGNESIUM OXIDE 400 MG TABLET PO SCH (09:50)
[2017-08-25] MEDS: LISINOPRIL 10 MG TABLET PO SCH (09:51)
[2017-08-25] MEDS: PREGABALIN 75 MG CAPSULE PO SCH (09:51)
[2017-08-25] MEDS: CHOLECALCIFEROL (D3) 1,000 UNIT TABLET PO SCH (09:51)
[2017-08-25] MEDS: IRON POLYSACCHARIDES COMPLEX 150 MG CAPSULE PO SCH (09:51)
[2017-08-25] MEDS: POTASSIUM CHLORIDE 10 MEQ TABLET.SA PO SCH (09:52)
[2017-08-25] MEDS: METFORMIN HCL 500 MG TABLET PO SCH (09:52)
[2017-08-25] MEDS: DONEPEZIL HCL 5 MG TABLET PO SCH (09:53)
[2017-08-25] MEDS: FUROSEMIDE 40 MG TABLET PO SCH (09:53)
[2017-08-25] MEDS: TAMSULOSIN HCL 0.4 MG CAP.SR.24H PO SCH (09:53)
[2017-08-25] MEDS: BUDESONIDE/FORMOTEROL 160-4.5 MCG 60 PUFF/6 GM MDI IH SCH (09:53)
[2017-08-25] MEDS: METOPROLOL TARTRATE 25 MG TABLET PO SCH (09:53)
[2017-08-25] MEDS: TIOTROPIUM BROMIDE DPI 5 CAP/KIT (18 MCG/CAP) IH SCH (09:54)
[2017-08-25] MEDS: ENOXAPARIN SODIUM INJ 40 MG/0.4 ML DISP.SYRIN SUBCUT SCH (09:55)
[2017-08-25] MEDS ORDERED: PREDNISONE 10 MG TABLET PO SCH (10:00)
[2017-08-25] MEDS: CEFEPIME HCL 2 GM in NORMAL SALINE 100 ML IV SCH (11:17)
--- NOTE | 2017-08-25 13:09 | PDOC DISCHARGE SUMMARY ---
General - Admit/Disc Date/PCP Admission Date/Primary Care Provider: 08/20/17 19:21 CLIF LE, Discharge Date: 08/25/17 - Discharge Diagnosis (1) Pneumonia Is this a current diagnosis for this admission?: Yes (2) Congestive heart failure (CHF) Is this a current diagnosis for this admission?: Yes (3) Coronary artery disease Is this a current diagnosis for this admission?: Yes (4) DM type 2 (diabetes mellitus, type 2) Is this a current diagnosis for this admission?: Yes (6) Chronic respiratory failure Is this a current diagnosis for this admission?: Yes - Additional Information Resuscitation Status: Full Code Prescriptions: Levofloxacin [Levaquin 750 mg Tablet] 750 mg PO DAILY 1 Days #10 tab Prednisone [Deltasone 10 mg Tablet] 20 mg PO DAILY #3 tablet Home Medications: Albuterol Sulfate [Albuterol Sulfate 2.5mg/3 mL] 1 vial IH RTQ4HP PRN 08/20/17 B-Complex with Vitamin C [B-Complex with C] 1 each PO DAILY 08/20/17 Budesonide/Formoterol Fumarate [Symbicort 160-4.5 Mcg Inhaler] 2 puff IH Q12 09/04 Cholecalciferol (Vitamin D3) [Vitamin D3 5000 unit Capsule] 5,000 unit PO DAILY 08/20/17 Donepezil HCl 10 mg PO DAILY 08/20/17 Furosemide [Lasix 40 mg Tablet] 40 mg PO BID 08/20/17 Iron Polysaccharide Complex [Ferrex 150] 150 mg PO DAILY 08/20/17 Isosorbide Mononitrate [Isosorbide Mononitrate ER] 60 mg PO DAILY 08/20/17 Levothyroxine Sodium 175 mcg PO QAM 08/20/17 Lisinopril 20 mg PO DAILY 08/20/17 Magnesium Oxide [Mag-Ox 400 mg Tablet] 400 mg PO DAILY 08/20/17 Metformin HCl 1,000 mg PO BID 08/20/17 Metoprolol Tartrate 25 mg PO Q12 08/20/17 Omeprazole 40 mg PO QAM 08/20/17 Oxycodone HCl 15 mg PO Q6HP PRN 08/20/17 Oxycodone HCl [Oxycontin] 30 mg PO Q12 08/20/17 Potassium Chloride 20 meq PO BID 08/20/17 Pregabalin [Lyrica] 150 mg PO BID 08/20/17 Rosuvastatin Calcium [Crestor 20 mg Tablet] 20 mg PO QHS 08/20/17 Tamsulosin HCl 0.4 mg PO BID 08/20/17 Tiotropium Glenn [Spiriva Handihaler 18 mcg/dose (30 Dose)] 1 cap IH DAILY 09/04 Ubidecarenone [Co Q-10] 200 mg PO DAILY 08/20/17 Aspirin [Aspirin 325 mg Tablet] 325 mg PO DAILY 08/21/17 Docusate Sodium [Colace 100 mg Capsule] 100 mg PO DAILYP PRN 08/21/17 Nystatin/Dexameth/Diphen [Magic Mouthwash] 10 ml PO QIDP PRN 08/21/17 Polyethylene Glycol 3350 [Miralax Powder 17 gm/Packet] 1 packet PO DAILY Levofloxacin [Levaquin 750 mg Tablet] 750 mg PO DAILY 1 Days #10 tab 08/25/17 Prednisone [Deltasone 10 mg Tablet] 20 mg PO DAILY #3 tablet 08/25/17 History of Present Illness History of Present Illness: CELSO CHOUDHARY is a 72 year old male history of CAD, CHF, COPD on 4 L home O2, presented with 2-3 days feeling of malaise and then cough starting yesterday. He also had fever of 101.5 last night. His cough is productive of green sputum. He presented to the ED where evaluation significant for white blood cells 20,000 and chest x-ray showing multifocal pneumonia. Patient reports history of flu infection in late May and pneumonia afterwards, and was admitted at those times to [facility] on both occasions. He also had sleep study done 2 weeks ago outpatient and was told he has severe EPHRAIM. He still waiting for his CPAP to be set up. In the ED he had blood cultures done, and received a dose of Rocephin and Zithromax. He was also placed on oxygen nonrebreather bag with O2 sat 93%, but patient found to be somnolent. was at bedside, and she provided most of the history. Hospital Course Hospital Course: Patient is a 71-year-old man with history of chronic respiratory failure on home oxygen 4 L, COPD, congestive heart failure, coronary artery disease to the hospital on August 19, 2017 with complaint of malaise associated with productive cough of greenish sputum. He did report having a fever the night prior to presentation. He was started on IV antibiotics, he has been on vancomycin, cefepime and azithromycin. Started on Solu-Medrol which has been tapered down. Blood culture negative this admission. He is clinically improved and his breathing is at baseline. Apparently he is to be getting CPAP machine for EPHRAIM. He is being discharged home with p.o. Levaquin and prednisone. He is to follow up with PCP. Physical Exam Vital Signs: Temp Pulse Resp BP Pulse Ox 97.4 F 52 L 16 109/59 L 93 08/25/17 11:49 08/25/17 11:49 08/25/17 11:49 08/25/17 11:49 08/25/17 11:49 Intake & Output 08/24/17 08/25/17 08/26/17 06:59 06:59 06:59 Intake Total 1583 1799 237 Output Total 500 950 Balance 1083 849 237 Weight 100.7 kg 99.4 kg General appearance: PRESENT: no acute distress Head exam: PRESENT: atraumatic, normocephalic Eye exam: PRESENT: EOMI Mouth exam: PRESENT: moist, neck supple Respiratory exam: PRESENT: decreased breath sounds, unlabored. ABSENT: accessory muscle use GI/Abdominal exam: PRESENT: normal bowel sounds, soft Rectal exam: PRESENT: deferred Extremities exam: ABSENT: pedal edema Neurological exam: PRESENT: alert, oriented to person, oriented to place, other - with forgetfullness at times Psychiatric exam: PRESENT: appropriate affect Skin exam: PRESENT: dry, warm Results Laboratory Results: 08/22/17 21:14 08/23/17 05:48 Impressions: Chest X-Ray 08/20/17 15:26 IMPRESSION: Multi lobar pneumonia. Qualifiers - * PATEINT BEING DISCHARGED WITH ANY OF THE FOLLOWING DIAGNOSIS?: No VTE patient discharged on overlapping Therapy?: Yes Plan Time Spent: Greater than 30 Minutes
[2017-08-25 13:44] VITALS: BP 125/78
== END 2017-08-25 14:36 | disposition home or self-care (01) | DRG 194 ==
LOC: ER 14:52 → EH 19:21 → 3N 08-21 04:34
PROVIDERS: ADMIT Internal Medicine; ATTEND Internal Medicine
DX: J18.9 Pneumonia, unspecified organism (principal); J44.1 Chronic obstructive pulmonary disease with (acute) exacerbation; J96.10 Chronic respiratory failure, unspecified whether with hypoxia or hypercapnia; E11.9 Type 2 diabetes mellitus without complications; I50.9 Heart failure, unspecified; I11.0 Hypertensive heart disease with heart failure; I25.10 Atherosclerotic heart disease of native coronary artery without angina pectoris; G47.33 Obstructive sleep apnea (adult) (pediatric); Z99.81 Dependence on supplemental oxygen; Z79.84 Long term (current) use of oral hypoglycemic drugs; Z79.891 Long term (current) use of opiate analgesic; Z79.51 Long term (current) use of inhaled steroids; Z79.899 Other long term (current) drug therapy
CPT/HCPCS: 36415; 71046; 80048; 80053; 80202; 82550; 82553; 82803; 82962; 83605; 83735; 83880; 84484; 85025; 87040; 93005; 93010; 94640; 94660; 96365; 96367; 96375; 99291; J0456; J0692; J0696; J1650; J1815; J1940; J2920; J3370; J3490; J7060; J7512; J7620